=== PATIENT | male | born 1935 | race Caucasian/White ===

== ENCOUNTER 2016-12-06 15:41 | Emergency (ER) | payer MEDICARE, OTHER ==
[~2016-12-06 15:41] MED LIST: ASPIR 8181 MG PO; CARVEDILOL6.25 M1 PO; COZ50 PO; DOCUSATE CALCI250 MG PO; EYE LUBRICANT OP; GABAPENTIN300 MG PO; HEP100I IV; IMDUR30 MG PO; INS7030 SC; INSULIN; LEVOTHYROXIN0.125 M2 PO; LIPITOR80 MG PO; LORAZEPAM1 MG PO; LOSARTAN PO; METFORMIN HCL500 MG PO; NEU300 PO; NIT0.4 SL; NITROSTAT0.4 MG SL; NORCO1 TA2 PO; NORTRIPTYLINE H10 MG PO; OMEPRAZOLE DR20 M1 PO; PROTONIX20 MG PO; RANITIDINE150 MG PO; TRAMADOL HCL50 M PO; [UNRECOGNIZED DRUG - CODE] PO; [UNRECOGNIZED DRUG - OTHER] RC
[2016-12-06 16:25] LABS: BASOPHIL % 0.4 % (0-2); PLATELET COUNT 245 x10^3mcL (130-400)
[2016-12-06 16:42] LABS: CARBON DIOXIDE 29.9 mmol/L (21-32); CHLORIDE SERUM 102 mmol/L (98-107); CREATININE SERUM 1.3 mg/dL (0.7-1.3); GLUCOSE SERUM 413 mg/dL (74-106); POTASSIUM SERUM 4.8 mmol/L (3.5-5.1); SODIUM SERUM 141 mmol/L (136-145)
[2016-12-06 16:45] LABS: ALKALINE PHOSPHATASE 90 U/L (46-116); ALT/SGPT 18 U/L (16-63); AST/SGOT 13 U/L (15-37); BILIRUBIN TOTAL 0.5 mg/dL (0.20-1.00); CHOLESTEROL 147 mg/dL (<200); TOTAL PROTEIN, SERUM 7.5 g/dL (6.4-8.2)
[2016-12-06 17:52] LABS: AMPHETAMINE QUAL UR NONE DETECTED (NEG <=1000)
[2016-12-06 19:09] VITALS: BP 112/79
== END 2016-12-06 19:09 | disposition short-term general hospital (02) ==
LOC: ED 15:41
PROVIDERS: Specialist
DX: R07.89 Other chest pain (principal); R55 Syncope and collapse; F03.90 Unspecified dementia, unspecified severity, without behavioral disturbance, psychotic disturbance, mood disturbance, and anxiety; E78.5 Hyperlipidemia, unspecified; K21.9 Gastro-esophageal reflux disease without esophagitis; G62.9 Polyneuropathy, unspecified
CPT/HCPCS: 80307; 83880; G0480; J7030; Q0092